=== PATIENT | female | born 1980 | race African-American/Black ===

== ENCOUNTER 2019-11-17 17:40 | Emergency (ER) | payer MEDICAID ==
[~2019-11-17] VITALS: Ht 175.3 cm; Wt 79.5 kg
[2019-11-17] MEDS ORDERED: DOXY100C42 PO (17:56)
[2019-11-17] MEDS ORDERED: albuterol (17:56)
[2019-11-17] MEDS ORDERED: POLYMYXIN B SULFATE/TMP 10ML BOTTLE RIGHTEYE ONE (19:00)
[2019-11-17] MEDS ORDERED: IBUPROFEN 400MG TABLET PO ONE (19:00)
[2019-11-17 19:59] VITALS: BP 105/65
== END 2019-11-17 20:00 | disposition home or self-care (01) ==
LOC: ER 17:40
DX: H10.89 Other conjunctivitis (principal); F17.200 Nicotine dependence, unspecified, uncomplicated; J45.909 Unspecified asthma, uncomplicated; Z88.1 Allergy status to other antibiotic agents; Z88.8 Allergy status to other drugs, medicaments and biological substances; Z98.51 Tubal ligation status
CPT/HCPCS: 99283

== ENCOUNTER 2022-07-17 08:26 | Emergency (ER) | payer MEDICAID ==
[~2022-07-17] VITALS: Ht 175.3 cm; Wt 91.0 kg
[~2022-07-17 08:26] MED LIST: DOXY-326 PO; albuterol
[2022-07-17 08:41] VITALS: BP 113/54
== END 2022-07-17 13:43 | disposition home or self-care (01) ==
LOC: ER 08:49
DX: Z53.21 Procedure and treatment not carried out due to patient leaving prior to being seen by health care provider (principal); J45.909 Unspecified asthma, uncomplicated; Z98.51 Tubal ligation status